=== PATIENT | male | born 2005 | race Caucasian/White ===

== ENCOUNTER 2025-07-25 16:21 | Outpatient (REF) | payer BC, SELFPAY ==
[2025-07-25 21:39] LABS: Anion Gap 9.6 mmol/L (3-11); BUN 15 mg/dL (9-23); CO2 29.4 mmol/L (20.0-31.0); Calcium 9.5 mg/dL (8.3-10.6); Chloride 105 mmol/L (98-107); Glucose 95 mg/dL (74-106); Potassium 4.2 mmol/L (3.5-5.1); Sodium 144 mmol/L (136-145)
== END 2025-07-25 16:22 | disposition home or self-care (01) ==
LOC: NCHCN 16:21
PROVIDERS: Visit Provider Nurse Practitioner Family
DX: Z00.00 Encounter for general adult medical examination without abnormal findings (principal); Z13.1 Encounter for screening for diabetes mellitus
CPT/HCPCS: 80048; 87491; 87591